=== PATIENT | male | born 2000 | race Caucasian/White ===

== ENCOUNTER 2023-12-04 09:40 | Emergency (ER) | payer SELFPAY ==
[2023-12-04 09:53] VITALS: BP 133/83; O2SAT 99
--- NOTE | 2023-12-04 11:16 | ED Physician Documentation ---
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 Patient excellently cut his left ring finger with a knife bleeding is well-controlled it is at the tip he is able to flex and extend but does endorse and quite a bit of pain. Unsure when his last tetanus shot was. PD PAST MEDICAL HISTORY - Past Medical History Past Medical History: No - Past Surgical History Past Surgical History: No - Present Medications Home Medications: Ambulatory Orders Medication Instructions Recorded Confirmed cephALEXin [Keflex] 500 mg PO Q6H 5 Days #20 cap 12/04/23 - Allergies Allergies/Adverse Reactions: Allergies Allergy/AdvReac Type Severity Reaction Status Date / Time No Known Drug Allergies Allergy Verified 12/04/23 09:49 - Social History Does the pt smoke?: No Smoking Status: Never smoker Does the pt drink ETOH?: No - Immunizations Immunizations are current?: Yes PD ED PE NORMAL - Vitals Vital signs reviewed: Yes - General General: Alert and oriented X 3, Well developed/nourished - Derm Derm: Other (left fourth ring finger laceration to DIP about 6cm, involving tip of fingernail.) - Extremities Extremities: Other (full ROM to left fourth finger. no weakness, +CMS) - Psych Psych: Normal mood Results - Vitals Vitals: Vital Signs - 24 hr 12/04/23 09:49 Temperature 36.1 C L Heart Rate 73 Respiratory 16 Rate Blood Pressure 133/83 H O2 Saturation 99 - Rads (name of study) finger X-ray Relevant Findings:: Final report received, EMP independent interpretation of test, Other (minimally displaced extra-articular fracture of the fourth distal tuft) Procedures - Laceration (location) left fourth finger Length in cm: 6 (DIP left fourth finger involving nail) Wound type: Curved, Into subcut fat, Other Neurovascular status: Sensory intact, Motor intact, Vascular intact Anesthesia: Lidocaine 2% Wound preparation: Hibiclens, Irrigated copiously NS, Wound explored, debridement of wound edges (traumatic laceration/avulsion) Skin layer closure: Nylon, Interrupted, Size #-0 - enter number (4-0), Sutures - enter # (7) Other: Patient tolerated well, No complications, Neurovascular intact, Dressing applied, Tetanus booster given PD Medical Decision Making - ED course ED course: Wound inspected under direct bright light with good visualization. X-ray is complete and do reveal that there is extra Articular fracture of the fourth distal tuft, No overt foreign body, Area hemostatic. Neurovascular exam congruent with above. Area extensively irrigated with sterile normal saline under pressure. Laceration repaired in simple fashion With 7 interrupted sutures (please see procedure note for further details). Patient tolerated procedure well and neurovascular exam intact and unchanged post repair with intact distal pulses and cap refill. Cautious return precautions discussed w/ full understanding. Wound care discussed. Prompt follow up with primary care physician discussed and return for suture removal in 10-12 days. 1 dose of Ancef given here in the emergency department and prescription of Keflex sent to patient's preferred pharmacy tetanus shot was updated. Departure - Departure Disposition: 01 Home, Self Care Clinical Impression: Avulsion fracture, Finger laceration Instructions: ED Laceration Sure Close Prescriptions: cephALEXin [Keflex] 500 mg PO Q6H 5 Days #20 cap Comments: Come back for any signs of infection which would include: Redness, swelling, drainage, increased pain, or fevers. You can wash it soap and water. Keep it covered and moist with bacitracin ointment which is available over the counter; avoid neosporin. Follow-up with your Primary care provider or urgent care/walk-in clinic in 10-12 days for suture removal. 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 Forms: PCP List Discharge Date/Time: 12/04/23 12:50
[2023-12-04] MEDS: LIDOCAINE-MPF 2% 5 ML VIAL SUBQ ONE (11:41)
[2023-12-04] MEDS: TETANUS/DIPHTHERIA/PERTUSSIS 0.5 ML SYRINGE IM ONE (11:41)
[2023-12-04] MEDS: ceFAZolin (2G) 2 GM in SODIUM CHLORIDE 0.9% 100ML 100 ML IV STA (11:54)
--- NOTE | 2023-12-04 12:08 | XRAY Report ---
PROCEDURE: Finger(s) LT INDICATIONS: Left ring finger laceration TECHNIQUE: AP hand, 2 views of the fourth finger(s) acquired. COMPARISON: None. FINDINGS: Bones: Oblique, mildly displaced, extra-articular fracture of the fourth distal tuft. No suspicious bony lesions. Soft tissues: No suspicious soft tissue calcifications or masses. IMPRESSION: Oblique, mildly displaced, extra-articular fracture of the fourth distal tuft. Reviewed by: Joanne Griffiths MD on 12/04/2023 12:06 PM PDT Approved by: Joanne Griffiths MD on 12/04/2023 12:06 PM PDT Station ID: [id number]
[2023-12-04] MEDS: BACITRACIN ZINC OINT 1 PACKET TOP STA (12:37)
== END 2023-12-04 12:50 | disposition home or self-care (01) ==
LOC: ED 09:40
DX: S62.635B Displaced fracture of distal phalanx of left ring finger, initial encounter for open fracture (principal); W26.0XXA Contact with knife, initial encounter; Z23 Encounter for immunization
CPT/HCPCS: 12002; 73140; 90471; 90715; 96365; 99283; 99284; A9270